=== PATIENT | female | born 1970 | race African-American/Black ===

== ENCOUNTER 2017-12-19 09:30 | Emergency (ER) | payer OTHER ==
[2017-12-19 09:40] VITALS: BP 125/66; PULSE 75; TEMP 98.6; BMI 24.1
[2017-12-19] MEDS ORDERED: KETOROLAC TROMETHAMINE 30 MG/1 ML VIAL IM ONE (10:10)
--- NOTE | 2017-12-19 10:15 | PDOC ---
History of Present Illness - General Chief Complaint: Injury Stated Complaint: FALL/ NECK, HIP PAIN Time Seen by Provider: 12/19/17 09:49 - History of Present Illness Initial Comments: 12/19/17 10:12 CHIEF COMPLAINT: soreness s/p slip & fall HISTORY OF PRESENT ILLNESS: 47 yo F with hx of spinal fusion presents to ED with generalized soreness to body s/p slip and fall in driveway. Patient reports her driveway was slippery from the rain and she slipped and fell but was able to catch herself with her hands and knees. She reports mild soreness to the "side of my hand and wrist" and back but denies significant pain, "like a 3/10." PAST MEDICAL HISTORY: Denies past medical history FAMILY HISTORY: Denies SOCIAL HISTORY: Denies tobacco, alcohol, illicit drug use. SURGICAL HISTORY: Denies ALLERGIES: No known drug allergies REVIEW OF SYSTEMS General/Constitutional: Denies fever or chills. Denies weakness, weight change. HEENT: Denies change in vision. Denies ear pain or discharge. Denies sore throat. Cardiovascular: Denies chest pain or shortness of breath. Respiratory: Denies cough, wheezing, or hemoptysis. Gastrointestinal: Denies nausea, vomiting, diarrhea or constipation. Denies rectal bleeding. Genitourinary: Denies dysuria, frequency, or change in urination. Musculoskeletal: "Soreness" to back, b/l knees, and right wrist. Skin and breasts: Denies rash or easy bruising. Neurologic: Denies headache, vertigo, loss of consciousness, or loss of sensation. PHYSICAL EXAM General Appearance: Well-appearing, appropriately dressed. No apparent distress , no intoxication. HEENT: EOMI, PERRLA, normal ENT inspection, normal voice, TMs normal, pharynx normal. No conjunctival pallor. No photophobia, scleral icterus. Neck: Supple. Trachea midline. No tenderness, rigidity, carotid bruit, stridor , lymphadenopathy, or thyromegaly. Respiratory/Chest: Lungs CTAB. No shortness of breath, chest tenderness, respiratory distress, accessory muscle use. No crackles, rales, rhonchi, stridor , wheezing, dullness Cardiovascular: RRR. S1, S2. No JVD, murmur, bradycardia, tachycardia. Vascular Pulses: Dorsalis-Pedis (R): 2+, Dorsalis-Pedis (L): 2+ Gastrointestinal/Abdominal: Normal bowel sounds. Abdomen soft, non-distended. No tenderness or rebound tenderness. No organomegaly, pulsatile mass, guarding , hernia, hepatomegaly, splenomegaly. Lymphatic: No adenopathy, tenderness. Musculoskeletal/Extremities: Normal inspection. FROM of all extremities, normal capillary refill. Pelvis Stable. No CVA tenderness. No tenderness to extremities, pedal edema, swelling, erythema or deformity. Integumentary: Appropriate color, dry, warm. No cyanosis, erythema, jaundice or rash Neurologic: clinical cytogenetics director II-XII intact. Fully oriented, alert. Appropriate mood/affect. Motor strength 5/5. No appreciable EOM palsy, facial droop or sensory deficit. Past History - Past Medical History Allergies/Adverse Reactions: Allergies Allergy/AdvReac Type Severity Reaction Status Date / Time Penicillins Allergy Verified 12/19/17 09:35 Home Medications: Ambulatory Orders Cyclobenzaprine HCl 7.5 mg PO HS PRN #10 tablet 12/19/17 Diclofenac Sodium [Voltaren -] 50 mg PO BID #20 tablet. 12/19/17 Levothyroxine [Synthroid -] 100 mcg PO DAILY 12/19/17 COPD: No Thyroid Disease: Yes - Immunization History Immunization Up to Date: Yes - Suicide/Smoking/Psychosocial Hx Smoking Status: No Smoking History: Never smoked Number of Cigarettes Smoked Daily: 0 Drug/Substance Use Hx: No Substance Use Type: None *Physical Exam - Vital Signs Last Vital Signs Temp Pulse Resp BP Pulse Ox 98.6 F 75 18 125/66 100 12/19/17 09:36 12/19/17 09:36 12/19/17 09:36 12/19/17 09:36 12/19/17 09:36 Medical Decision Making - Medical Decision Making 12/19/17 10:15 47 yo F with hx of spinal fusion presents to ED with generalized soreness to body s/p slip and fall in driveway. -Toradol *DC/Admit/Observation/Transfer Diagnosis at time of Disposition: Fall - Discharge Dispostion Disposition: HOME Condition at time of disposition: Stable Decision to Admit order: No - Prescriptions Prescriptions: Cyclobenzaprine HCl 7.5 mg PO HS PRN #10 tablet PRN Reason: Muscle Spasms Diclofenac Sodium [Voltaren -] 50 mg PO BID #20 tablet.dr - Referrals Referrals: Osei Gutiérrez MD [Staff Physician] - - Patient Instructions Printed Discharge Instructions: DI for Muscle Strain Additional Instructions: Please take medication as prescribed. If your symptoms do not improve in 5-7 days, please follow up with an orthopedics for further evaluation and a possible MRI or physical therapy. If you experience any loss of sensation to your extremities, any loss of bowel or bladder function, any swelling or increased pain to your leg, please return to the ER. - Post Discharge Activity
[2017-12-19] MEDS ORDERED: KETOROLAC TROMETHAMINE 30 MG/1 ML VIAL ONE (10:16)
== END 2017-12-19 10:28 | disposition home or self-care (01) ==
LOC: JERFT 09:30
PROC: 3E0233Z Introduction of Anti-inflammatory into Muscle, Percutaneous Approach (ICD-10-PCS; principal; 2017-12-19)
DX: M54.9 Dorsalgia, unspecified (principal); W18.30XA Fall on same level, unspecified, initial encounter; Y93.89 Activity, other specified; Y92.008 Other place in unspecified non-institutional (private) residence as the place of occurrence of the external cause
CPT/HCPCS: 84703; 99281-25